=== PATIENT | female | born 1995 | race Caucasian/White ===

== ENCOUNTER 2019-11-03 09:50 | Emergency (ER) | payer OTHER, SELFPAY ==
[2019-11-03] VITALS (7 sets, daily range): BP systolic 132–151; BP diastolic 62–95; PULSE 64–78; RESP 15–18; TEMP 36.8; O2SAT 96–97; BMI 43.2
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
[2019-11-03] MEDS: morphine 4 mg/mL SDV 1 mL 2 MG IVP (10:33)
[2019-11-03] MEDS: ondansetron 2 mg/ML SDV 2 mL 4 MG IVP (10:33)
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
[2019-11-03 10:42] LABS: Basophils % 0.4 %; Eosinophils # 0.2 10^3/uL (0.0-0.8); Eosinophils % 2.1 %; Hematocrit 43.3 % (37.0-47.0); Hemoglobin 13.9 g/dL (11.5-15.3); Lymphocytes # 1.3 10^3/uL (0.8-4.8); Lymphocytes % 11.9 %; Mean Corpuscular HGB Conc 32.1 g/dL (30.0-36.0); Mean Corpuscular Volume 87.3 fL (81-99); Monocytes # 0.6 10^3/uL (0.2-0.9); Monocytes % 5.8 %; Neutrophils # 8.65 10^3/uL (1.8-7.7); Neutrophils % 79.5 %; Nucleated Red Blood Cells % 0 %; Platelet Count 131 10^3/cmm (130-400); Red Blood Count 4.96 10^6/uL (4.1-5.3); Red Cell Distribution Width 11.6 % (12.1-15.1); White Blood Count 10.9 10^3/uL (4.0-10.0)
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
[2019-11-03 10:52] LABS: HCG, Serum Qual Negative (Negative)
[2019-11-03 11:17] LABS: Alanine Aminotransferase 21 U/L (0-33); Albumin Level 3.7 g/dL (3.5-5.2); Alkaline Phosphatase 143 IU/L (35-105); Blood Urea Nitrogen 12 mg/dL (6-20); Calcium 8.7 mg/dL (8.5-10.5); Carbon Dioxide 23 mmol/L (22-29); Chloride 103 mmol/L (98-107); Globulin 3.7 g/dL (1.3-4.6); Glucose 102 mg/dL (65-115); Osmolality Calculated 280 mOsm/kg (285-295); Sodium 137 mmol/L (136-145); Total Bilirubin 0.2 mg/dL (0.15-1.2); Total Protein 7.4 g/dL (6.6-8.7)
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
[2019-11-03 11:30] LABS: Anion Gap 15.4 (5-19); Aspartate Amino Transferase 31 U/L (0-32); Potassium 4.4 mmol/L (3.5-5.1)
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
[2019-11-03] MEDS: morphine 4 mg/mL SDV 1 mL IVP (13:11)
[2019-11-03] MEDS: HYDROcodone-acetaminophen 7.5-325 mg Tablet 1 TAB PO (14:58)
--- NOTE | 2019-11-03 16:14 | PC.SOCIAL ---
Spoke with Caitlin at [facility] regarding referral. They will have provider review and let this nurse know if unable to see patient or if we need to notify patient.
--- NOTE | 2019-11-05 13:19 | PC.SOCIAL ---
Call received from Pat at [facility]. She was not able to reach patient or contacts listed in order to schedule appointment. This nurse has also tried to reach both and unable to do so or leave message. Phones just continue to ring with no contact made.
== END 2019-11-03 15:00 | disposition home or self-care (01) ==
PROVIDERS: Emergency Provider Physician Assistant; PCP Family Medicine
DX: S52.522A Torus fracture of lower end of left radius, initial encounter for closed fracture (principal); V89.2XXA Person injured in unspecified motor-vehicle accident, traffic, initial encounter
CPT/HCPCS: 12345; 29125; 36415; 70450; 72125; 73030; 73110; 73200; 73562; 80053; 84703; 85025; 96374; 96375; 96376; 99283; J2270; J2405